=== PATIENT | female | born 1970 | race American Indian/Alaskan Native ===

== ENCOUNTER 2017-02-15 12:02 | Emergency (ER) | payer OTHER ==
[2017-02-15 12:02] VITALS: BMI 25.5
[2017-02-15 12:22] VITALS: TEMP 98.2
--- NOTE | 2017-02-15 13:24 | ED PDOC ---
Arrival/HPI - General Chief Complaint: Hip Pain Time Seen by Provider: 02/15/17 12:05 Historian: Patient - History of Present Illness Narrative History of Present Illness (Text): 02/15/17 13:19 46yr old female presents today with a 1 day history of right hip pain. pt denies trauma ro injury. pt states yesterday she was standing still and suddenly developed pain to the anterior aspect of the right hip. pt states pain radiated from buttock to hip and into thigh. denies numbness, weakness, or tingling in the extremity. pt states she took aleve at home for pain with some relief. pt denies abdominal pain. pt states she still has pain but it is much better than yesterday. pt states pain is worse with ambulation and with rom of hip. Time/Duration: Other (1 day) Symptom Onset: Sudden Symptom Course: Improving Quality: Tightness, Stabbing Severity Level: 5 Past Medical History - Provider Review Nursing Documentation Reviewed: Yes - Travel History Have you recently traveled outside [place] w/in the past 3 mons?: No - Past History Past History: No Previous - Infectious Disease Hx of Infectious Diseases: None - Tetanus Immunization Tetanus Immunization: Unknown - Past Medical History Past Medical History: No Previous - Psychiatric Hx Substance Use: No - Surgical History Hx Hysterectomy: Yes (partial) Hx Orthopedic Surgery: Yes (left knee) Family/Social History - Physician Review Nursing Documentation Reviewed: Yes Family/Social History: Unknown Family HX Smoking Status: Never Smoked Hx Alcohol Use: Yes Hx Substance Use: No Allergies/Home Meds Allergies/Adverse Reactions: Allergies Iodinated Contrast Media - Oral and Allergy (Verified 02/15/17 12:19) ANAPHYLAXIS Review of Systems - Review of Systems Constitutional: absent: Fatigue, Fevers Respiratory: absent: SOB, Cough Cardiovascular: absent: Chest Pain Gastrointestinal: absent: Abdominal Pain, Vomiting Musculoskeletal: Arthralgias. absent: Back Pain, Neck Pain Skin: absent: Rash, Pruritis Neurological: absent: Headache Physical Exam Vital Signs Reviewed: Yes Vital Signs Temp Pulse Resp BP Pulse Ox 02/15/17 12:21 98.2 F 82 17 129/88 99 Temperature: Afebrile Blood Pressure: Normal Pulse: Regular Respiratory Rate: Normal Appearance: Positive for: Well-Appearing, Non-Toxic, Comfortable Pain Distress: None Mental Status: Positive for: Alert and Oriented X 3 - Systems Exam Head: Present: Atraumatic Mouth: Present: Moist Mucous Membranes Respiratory/Chest: Present: Clear to Auscultation Cardiovascular: Present: Regular Rate and Rhythm Abdomen: No: Tenderness, Distention Back: Present: Normal Inspection. No: Midline Tenderness, Paraspinal Tenderness , Pain with Leg Raise Lower Extremity: Present: NORMAL PULSES, Tenderness (right hip; + ttp over anterior and lateral aspect of hip; + ttp with abduction of the hip; no edema, no erythema; no ecchymosis; no calf tenderness. negative straight leg raise. sensation and distal pulses intact; cap refill <2. ), Neurovascularly Intact, Capillary Refill < 2 s, Other (pelvis stable). No: CALF TENDERNESS, Swelling, Erythema, Deformity Neurological: Present: GCS=15 Skin: Present: Warm, Dry, Normal Color. No: Rashes Psychiatric: Present: Alert, Oriented x 3 Medical Decision Making ED Course and Treatment: 02/15/17 13:26 Patient nontoxic well-appearing in no distress with stable vital signs X-rays of the right hip: No fracture as read by the radiologist venous duplex of right leg; no dvt verbal report from US tech. Toradol, Flexeril Patient reassessment: pt feeling better after medications; vitals stable. I discussed all results in depth with the patient advised to followup with the orthopedist within the next 2 days. Advised return if symptoms worsen persist or new symptoms develop i advised the patient that although the xrays show no fracture; there is still a possibility for ligamentous or tendon injury the patient must see the orthopedist for further evaluation. Patient verbalizes understanding of discharge instructions and need for immediate followup. all aspects of this case were discussed the attending of record. Impression: Hip pain Motrin every 6 hours as needed for pain flexeril; 1 tablet every 8 hours as needed for muscle spasms; may cause drowsiness. Rest, ice, compression, elevation Followup with the orthopedist within the next 2 days Followup with primary care physician within the next 2 days Return if symptoms worsen persist or if new symptoms develop 02/15/17 13:47 - RAD Interpretation Radiology Orders: 02/15/17 12:41 Hip Right [HIP MIN 2V W/ PELVIS RT] [RAD] Stat 02/15/17 13:27 DUPLEX LOWER EXTRM VEIN RIGHT [US] Stat - Medication Orders Current Medication Orders: Discontinued Medications Cyclobenzaprine HCl (Flexeril) 10 mg PO STAT STA Stop: 02/15/17 12:42 Last Admin: 02/15/17 12:49 Dose: 10 mg Ketorolac Tromethamine (Toradol) 60 mg IM STAT STA Stop: 02/15/17 12:42 Last Admin: 02/15/17 12:52 Dose: Not Given Non-Admin Reason: Patient Refused Disposition/Present on Arrival - Present on Arrival Any Indicators Present on Arrival: Yes History of DVT/PE: Yes History of Uncontrolled Diabetes: No Urinary Catheter: No History of Decub. Ulcer: No History Surgical Site Infection Following: None - Disposition Have Diagnosis and Disposition been Completed?: Yes Diagnosis: Hip pain, Leg pain Disposition: HOME/ ROUTINE Disposition Time: 13:30 Patient Plan: Discharge Condition: GOOD Discharge Instructions (ExitCare): Hip Pain (ED), Leg Pain (ED) Additional Instructions: Motrin every 6 hours as needed for pain flexeril; 1 tablet every 8 hours as needed for muscle spasms; may cause drowsiness. Rest, ice, compression, elevation Followup with the orthopedist within the next 2 days Followup with primary care physician within the next 2 days Return if symptoms worsen persist or if new symptoms develop Prescriptions: Cyclobenzaprine [Cyclobenzaprine HCl] 10 mg PO Q8 #10 tab Ibuprofen [Motrin] 600 mg PO Q6H PRN #20 tab PRN Reason: pain/fever reduction Referrals: Tyrone Garcia III, MD [Medical Doctor] - Follow up with primary [facility] [place] [Outside] - Follow up with primary Julienne Tapia MD [Staff Provider] - Follow up with primary Forms: WORK NOTE
--- NOTE | 2017-02-15 13:31 | RAD ---
PROCEDURE: Right Hip and pelvis Radiographs. HISTORY: right hip pain COMPARISON: None. FINDINGS: BONES: Normal. No fracture. JOINTS: Normal. SOFT TISSUES: Normal. OTHER FINDINGS: None. IMPRESSION: Negative study
[2017-02-15 14:18] VITALS: BP 119/78; PULSE 78; RESP 18; O2SAT 98
--- NOTE | 2017-02-15 19:10 | US ---
PROCEDURE: Right lower extremity venous US HISTORY: Leg pain and swelling. Evaluate for DVT. PHYSICIAN(S): Jose Cooley M.D. TECHNIQUE: Duplex sonography and color-flow Doppler with graded compression were used to evaluate the deep venous system of the right lower extremity. FINDINGS: The visualized deep venous system of the right lower extremity is sonographically normal and compressible. Normal waveforms and augmentation are seen. There is no sonographic evidence for deep venous thrombosis in the visualized segments of the right lower extremity. IMPRESSION: 1. No sonographic evidence for deep venous thrombosis in the visualized segments of the right lower extremity.
== END 2017-02-15 14:18 | disposition home or self-care (01) ==
LOC: ED 12:02
DX: M25.551 Pain in right hip (principal); M79.604 Pain in right leg

== ENCOUNTER 2017-04-05 16:11 | Emergency (ER) | payer OTHER ==
[2017-04-05 16:12] VITALS: BMI 25.5
[2017-04-05 16:17] VITALS: PULSE 80; RESP 16; TEMP 98.4; O2SAT 98
[2017-04-05] MEDS ORDERED: Alum-Mag Hydrox-Simethicone Susp (30 mL) PO STA (16:37)
--- NOTE | 2017-04-05 16:54 | ED PDOC ---
Arrival/HPI - General Chief Complaint: Chest Pain Time Seen by Provider: 04/05/17 16:24 - History of Present Illness Narrative History of Present Illness (Text): 46F c/o anterior substernal chest pain "burning" and "pressure" that feels like "gas." burning started 6 days ago on thursday after she took an aleve and "it messed my stomach up" and pressure on . sx are fairly constant and worse after eating. hx of dvt and pe several years ago and was on anticoag for 6 months after. psh hysterectomy due to fibroid. reports anaphylactic reaction after receiving "blood, plasma, and IV contrast all at the same time." denies smoking or drug use. Past Medical History - Past History Past History: No Previous - Infectious Disease Hx of Infectious Diseases: None - Tetanus Immunization Tetanus Immunization: Unknown - Past Medical History Past Medical History: No Previous - Pulmonary Hx Respiratory Disorders: Yes Hx Pulmonary Embolism: Yes (2014) - Neurological Hx Neurological Disorder: No - HEENT Hx HEENT Disorder: No - Renal Hx Renal Disorder: No - Endocrine/Metabolic Hx Endocrine Disorders: No - Hematological/Oncological Hx Blood Disorders: No - Integumentary Hx Dermatological Disorder: No - Musculoskeletal/Rheumatological Hx Musculoskeletal Disorders: No - Gastrointestinal Hx Gastrointestinal Disorders: No - Genitourinary/Gynecological Hx Genitourinary Disorders: No - Psychiatric Hx Psychophysiologic Disorder: No Hx Substance Use: No - Surgical History Hx Hysterectomy: Yes (partial) Hx Orthopedic Surgery: Yes (left knee) Family/Social History Family/Social History: denies: CAD/[place] Smoking Status: Never Smoked Hx Alcohol Use: Yes Frequency of alcohol use: Socially Hx Substance Use: No Allergies/Home Meds Allergies/Adverse Reactions: Allergies Iodinated Contrast- Oral and IV Dye [Iodinated Contrast Media - Oral and] Allergy (Verified 04/05/17 16:17) ANAPHYLAXIS Home Medications: Home Meds Medication Instructions Recorded Confirmed No Known Home Med 04/05/17 04/05/17 Review of Systems - Review of Systems Constitutional: absent: Fevers Respiratory: absent: SOB, Cough, Sputum Cardiovascular: Chest Pain. absent: Palpitations, Edema Gastrointestinal: absent: Abdominal Pain, Nausea, Vomiting Genitourinary Female: absent: Dysuria Neurological: absent: Headache, Focal Weakness Physical Exam Vital Signs Reviewed: Yes Vital Signs Temp Pulse Resp BP Pulse Ox 04/05/17 16:15 98.4 F 80 16 141/95 H 98 Appearance: Positive for: Well-Appearing, Non-Toxic, Comfortable Pain Distress: None Mental Status: Positive for: Alert and Oriented X 3 - Systems Exam Head: Present: Atraumatic Pupils: Present: PERRL Mouth: Present: Moist Mucous Membranes Neck: Present: Normal Range of Motion Respiratory/Chest: Present: Clear to Auscultation. No: Respiratory Distress, Accessory Muscle Use Cardiovascular: Present: Regular Rate and Rhythm Abdomen: No: Tenderness, Distention Upper Extremity: Present: NORMAL PULSES Lower Extremity: No: Edema Neurological: Present: GCS=15, Motor Func Grossly Intact, Normal Sensory Function, Other (no focal deficits) Skin: Present: Warm, Dry Psychiatric: Present: Alert, Oriented x 3 Medical Decision Making ED Course and Treatment: ecg- nsr 71, nl axis, nl int, no acute ischemia cxr- nad 04/05/17 18:21 the pt reports that her pain is now gone after maalox and viscous lidocaine. susp her sx are most likely GI related. she already incidentally has an appt w GI tomorrow for a different reason. HEART score low risk. - Lab Interpretations Lab Results: 04/05/17 16:50 04/05/17 17:12 Lab Results 04/05/17 17:12: Sodium 136, Potassium 3.5 L, Chloride 102, Carbon Dioxide 23, Anion Gap 15, BUN 8, Creatinine 0.7, Est GFR ( Amer) > 60, Est GFR (Non- Af Amer) > 60, Random Glucose 81, Calcium 9.4, Total Bilirubin 0.7, AST 25, ALT 27, Alkaline Phosphatase 94, Troponin I < 0.01, Total Protein 7.3, Albumin 4.4, Globulin 2.9, Albumin/Globulin Ratio 1.5 04/05/17 16:50: D-Dimer, Quantitative 0.47 04/05/17 16:50: WBC 5.0, RBC 4.57, Hgb 14.1, Hct 41.0, MCV 89.7, MCH 30.9, MCHC 34.4, RDW 12.7, Plt Count 288, MPV 10.9, Gran % 50.3, Lymph % (Auto) 39.3 H, [place] % (Auto) 8.0 H, Eos % (Auto) 2.0, Baso % (Auto) 0.4, Gran # 2.52, Lymph # 2.0, Spencer # 0.4, Eos # 0.1, Baso # 0.02 - RAD Interpretation Radiology Orders: 04/05/17 16:36 CHEST PORTABLE [RAD] Stat - Medication Orders Current Medication Orders: Discontinued Medications Al Hydrox/Mg Hydrox/Simethicone (Maalox Plus 30 Ml) 30 ml PO STAT STA Stop: 04/05/17 16:38 Last Admin: 04/05/17 17:02 Dose: 30 ml Lidocaine HCl (Lidocaine 2% Viscous) 15 ml PO STAT STA Stop: 04/05/17 16:38 Last Admin: 04/05/17 17:02 Dose: 15 ml Disposition/Present on Arrival - Present on Arrival Any Indicators Present on Arrival: Yes History of DVT/PE: Yes History of Uncontrolled Diabetes: No Urinary Catheter: No History of Decub. Ulcer: No History Surgical Site Infection Following: None - Disposition Have Diagnosis and Disposition been Completed?: Yes Diagnosis: Chest pain Disposition: HOME/ ROUTINE Disposition Time: 18:21 Condition: IMPROVED Discharge Instructions (ExitCare): Chest Pain (ED) Forms: [employer] (Portuguese)
[2017-04-05 17:11] LABS: BASO # 0.02 K/mm3 (0.0-2.0); BASO % 0.4 % (0.0-3.0); EOS # 0.1 (0.0-0.7); GRAN # 2.52 (1.4-6.5); GRAN % 50.3 % (50.0-68.0); HEMOGLOBIN 14.1 g/dL (12.0-16.0); LYMPH % 39.3 % (22.0-35.0); MEAN CELL VOLUME 89.7 fl (80.0-105.0); MEAN CORPUSCULAR HEMOGLOBIN 30.9 pg (25.0-35.0); MEAN CORPUSCULAR HGB CONC 34.4 g/dl (31.0-37.0); MEAN PLATELET VOLUME 10.9 fl (7.0-11.0); MONO # 0.4 (0.1-0.6); PLATELET COUNT 288 10^3/uL (120.0-450.0); RBC 4.57 10^6/uL (3.5-6.1); RED CELL DISTRIBUTION WIDTH 12.7 % (11.5-14.5)
[2017-04-05 17:34] LABS: ALB/GLOB RATIO 1.5 (1.1-1.8); ALBUMIN 4.4 g/dL (3.0-4.8); ALT/SGPT 27 U/L (7-56); AST/SGOT 25 U/L (15-39); BLOOD UREA NITROGEN 8 mg/dL (7-21); CALCIUM 9.4 mg/dL (8.4-10.5); GFR AFRICAN-AMERICAN > 60; GFR NON-AFRICAN AMERICAN > 60
[2017-04-05 18:01] LABS: TROPONIN I < 0.01 ng/mL
[2017-04-05 18:41] VITALS: BP 123/76
--- NOTE | 2017-04-06 07:13 | RAD ---
HISTORY: Chest pain. COMPARISON: No prior. FINDINGS: LUNGS: No active pulmonary disease. PLEURA: No significant pleural effusion identified, no pneumothorax apparent. CARDIOVASCULAR: No radiographic findings to suggest acute or significant cardiovascular disease. OSSEOUS STRUCTURES: No significant abnormalities. VISUALIZED UPPER ABDOMEN: Normal. OTHER FINDINGS: None. IMPRESSION: No active disease.
--- NOTE | 2017-04-06 13:21 | CARD ---
APPROVED REPORT EKG Measurement Heart [id number] <Conclusion> Normal sinus rhythm Normal ECG
== END 2017-04-05 18:40 | disposition home or self-care (01) ==
LOC: ED 16:11
DX: R07.9 Chest pain, unspecified (principal); Z86.711 Personal history of pulmonary embolism; Z86.718 Personal history of other venous thrombosis and embolism

== ENCOUNTER 2018-02-05 20:47 | Emergency (ER) | payer OTHER ==
[2018-02-05 21:22] VITALS: RESP 18; TEMP 98.4; BMI 26.3
--- NOTE | 2018-02-05 21:25 | ED PDOC ---
Arrival/HPI - General Chief Complaint: Chest Pain Time Seen by Provider: 02/05/18 21:00 Historian: Patient, Spouse - History of Present Illness Narrative History of Present Illness (Text): you were treated in the ED today for hx of deep vein clot/pulmonary embolism during uterine surgery and completed blood thinning treatment 2014 and now having stress/anxiety at work and feel some intermittent generalized chest pain with transient difficulty breathing and otherwise without any nausea/vomiting/ headache/dizziness/difficulty breathing/chest pain/abdomen pain/numbness/ tingling/loss of limb function/pain with urination/no thoughts to harm yourself or others or hallucination. Time/Duration: Other (2 days) Symptom Onset: Gradual Symptom Course: Intermittent Quality: Aching Severity Level: 2 Activities at Onset: Rest Context: Sitting Past Medical History - Provider Review Nursing Documentation Reviewed: Yes - Travel History Have you recently traveled outside [place] w/in the past 3 mons?: No - Past History Past History: No Previous - Infectious Disease Hx of Infectious Diseases: None - Tetanus Immunization Tetanus Immunization: Unknown - Past Medical History Past Medical History: No Previous - Pulmonary Hx Respiratory Disorders: Yes Hx Pulmonary Embolism: Yes (2014) - Neurological Hx Neurological Disorder: No - HEENT Hx HEENT Disorder: No - Renal Hx Renal Disorder: No - Endocrine/Metabolic Hx Endocrine Disorders: No - Hematological/Oncological Hx Blood Disorders: No - Integumentary Hx Dermatological Disorder: No - Musculoskeletal/Rheumatological Hx Musculoskeletal Disorders: No - Gastrointestinal Hx Gastrointestinal Disorders: No - Genitourinary/Gynecological Hx Genitourinary Disorders: No - Psychiatric Hx Psychophysiologic Disorder: No Hx Substance Use: No - Surgical History Hx Hysterectomy: Yes (partial) Hx Orthopedic Surgery: Yes (left knee) Family/Social History - Physician Review Nursing Documentation Reviewed: Yes Family/Social History: No Known Family HX Smoking Status: Never Smoked Hx Alcohol Use: Yes Hx Substance Use: No Allergies/Home Meds Allergies/Adverse Reactions: Allergies Iodinated Contrast- Oral and IV Dye [Iodinated Contrast Media - Oral and] Allergy (Verified 04/05/17 16:17) ANAPHYLAXIS Home Medications: Home Meds Medication Instructions Recorded Confirmed No Known Home Med 02/05/18 02/05/18 Review of Systems - Review of Systems Constitutional: Normal Eyes: Normal ENT: Normal Respiratory: SOB Cardiovascular: Chest Pain Gastrointestinal: Normal Genitourinary Female: Normal Musculoskeletal: Normal Skin: Normal Neurological: Normal Endocrine: Normal Hemo/Lymphatic: Normal Psychiatric: Normal Physical Exam Vital Signs Reviewed: Yes Vital Signs Temp Pulse Resp BP Pulse Ox 02/05/18 21:07 98.4 F 72 18 125/94 H 97 Temperature: Afebrile Blood Pressure: Hypertensive Pulse: Regular Respiratory Rate: Normal Appearance: Positive for: Well-Appearing, Non-Toxic, Comfortable Pain Distress: None Mental Status: Positive for: Alert and Oriented X 3 - Systems Exam Head: Present: Atraumatic, Normocephalic Pupils: Present: PERRL Extroacular Muscles: Present: EOMI Conjunctiva: Present: Normal Ears: Present: Normal Mouth: Present: Moist Mucous Membranes Pharnyx: Present: Normal Nose (External): Present: Atraumatic Nose (Internal): Present: Normal Inspection Neck: Present: Normal Range of Motion Respiratory/Chest: Present: Clear to Auscultation, Good Air Exchange Cardiovascular: Present: Regular Rate and Rhythm Abdomen: No: Tenderness, Distention, Normal Bowel Sounds, Peritoneal Signs, Rebound, Guarding, McBurney's Point Tender, Rovsing's Sign Present, Hernias, Feeding Tubes, Ostomy Tubes, Mass/Organomegaly, Scars, Other Back: Present: Normal Inspection Upper Extremity: Present: Normal Inspection Lower Extremity: Present: Normal Inspection Neurological: Present: GCS=15, CN II-XII Intact, Speech Normal, Motor Func Grossly Intact Skin: Present: Warm, Normal Color Psychiatric: Present: Alert, Oriented x 3, Normal Insight, Normal Concentration Medical Decision Making ED Course and Treatment: you were treated in the ED today for hx of deep vein clot/pulmonary embolism during uterine surgery and completed blood thinning treatment 2014 and now having stress/anxiety at work and feel some intermittent generalized chest pain with transient difficulty breathing and otherwise without any nausea/vomiting/ headache/dizziness/difficulty breathing/chest pain/abdomen pain/numbness/ tingling/loss of limb function/pain with urination/no thoughts to harm yourself or others or hallucination. You were otherwise breathing easily, pink moist lips , smiling and talking with your family, good strength/sensation, alert/oriented , walking easily, clear lungs, no abdomen tenderness, no fever temp 98.4, stable heart rate 72, stable breathing rate 18, excellent oxygen level 97% room air, elevated blood pressure 125/94 which we recommend repeat in 2-3 days primary care office to determine further treatment, you have blood tests no infection count 5, stable blood level hemoglobin 14/platelets 226, stable chemistry, heart blood test negative less than 0.01, heart failure test negative 33, low risk of blood clot negative less than 200, urine test no acute sign of infection nitrite/leukocyte negative, urine test refused, radiology chest xray initial no acute findings, ECG normal sinus rhythm, aspirin , observation done in the ED with improvement, had a long discussion with you and your as you didn't want to proceed for ct scan of your chest due to possible contrast allergy and had long discussion for further observation/care in the hospital but you refused and cautioned for complications/, counselled to monitor symptoms and thus you wanted to home with . 1. Recommend follow-up primary care 2-3 days to review symptoms, get final xray report, referral to cardiology clinic, pulmonary clinic and mental health clinic to review your symptoms, referral to gastroenterology clinic for urobilinogen in urine to ensure no complications and further care. 4. If any worsening pain, fever, chills, nausea, vomiting, difficulty breathing, numbness , loss of limb function, pain with urination or any medical condition then return to the ED. 02/06/18 00:16 02/06/18 00:16 Reassessment Condition: Re-examined, Improved - Lab Interpretations Lab Results: 02/05/18 21:47 02/05/18 21:47 Lab Results 02/05/18 22:32: Urine Color yellow, Urine Appearance Clear, Urine pH 6.0, Ur Specific [place] >= 1.030, Urine Protein Negative, Urine Glucose (UA) Negative, Urine Ketones 15 H, Urine Blood Negative, Urine Nitrate Negative, Urine Bilirubin Negative, Urine Urobilinogen 1.0 H, Ur Leukocyte Esterase Negative 02/05/18 21:47: PT 10.4, INR 0.91 L, APTT 23.1 L, D-Dimer, Quantitative < 200 02/05/18 21:47: Sodium 139, Potassium 3.9, Chloride 103, Carbon Dioxide 23, Anion Gap 17, BUN 13, Creatinine 0.6 L, Est GFR ( Amer) > 60, Est GFR ( Non-Af Amer) > 60, Random Glucose 97, Calcium 9.2, Magnesium 2.1, Total Bilirubin 0.4, AST 23, ALT 33, Alkaline Phosphatase 92, Lactate Dehydrogenase 447, Total Creatine Kinase 125, Troponin I < 0.01, NT-Pro-B Natriuret Pep 33.8, Total Protein 7.2, Albumin 4.1, Globulin 3.2, Albumin/Globulin Ratio 1.3 02/05/18 21:47: WBC 5.5, RBC 4.65, Hgb 14.7, Hct 41.9, MCV 90.1, MCH 31.6, MCHC 35.1, RDW 12.7, Plt Count 226, MPV 10.2, Gran % 47.4 L, Lymph % (Auto) 42.2 H, [place] % (Auto) 6.9 H, Eos % (Auto) 3.1, Baso % (Auto) 0.4, Gran # 2.59, Lymph # ( Auto) 2.3, [place] # (Auto) 0.4, Eos # (Auto) 0.2, Baso # (Auto) 0.02 I have reviewed the lab results: Yes - RAD Interpretation Radiology Orders: 02/05/18 22:27 CHEST PORTABLE [RAD] Stat 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 Ulcer: No History Surgical Site Infection Following: None - Disposition Have Diagnosis and Disposition been Completed?: Yes Diagnosis: Chest pain Disposition: AGAINST MEDICAL ADVICE Disposition Time: 00:17 Condition: IMPROVED Discharge Instructions (ExitCare): Chest Pain (ED), Chest Pain (DC) Additional Instructions: you were treated in the ED today for hx of deep vein clot/pulmonary embolism during uterine surgery and completed blood thinning treatment 2014 and now having stress/anxiety at work and feel some intermittent generalized chest pain with transient difficulty breathing and otherwise without any nausea/vomiting/ headache/dizziness/difficulty breathing/chest pain/abdomen pain/numbness/ tingling/loss of limb function/pain with urination/no thoughts to harm yourself or others or hallucination. You were otherwise breathing easily, pink moist lips , smiling and talking with your family, good strength/sensation, alert/oriented , walking easily, clear lungs, no abdomen tenderness, no fever temp 98.4, stable heart rate 72, stable breathing rate 18, excellent oxygen level 97% room air, elevated blood pressure 125/94 which we recommend repeat in 2-3 days primary care office to determine further treatment, you have blood tests no infection count 5, stable blood level hemoglobin 14/platelets 226, stable chemistry, heart blood test negative less than 0.01, heart failure test negative 33, low risk of blood clot negative less than 200, urine test no acute sign of infection nitrite/leukocyte negative, urine test refused, radiology chest xray initial no acute findings, ECG normal sinus rhythm, aspirin , observation done in the ED with improvement, had a long discussion with you and your as you didn't want to proceed for ct scan of your chest due to possible contrast allergy and had long discussion for further observation/care in the hospital but you refused and cautioned for complications/, counselled to monitor symptoms and thus you wanted to home with . 1. Recommend follow-up primary care 2-3 days to review symptoms, get final xray report, referral to cardiology clinic, pulmonary clinic and mental health clinic to review your symptoms, referral to gastroenterology clinic for urobilinogen in urine to ensure no complications and further care. 4. If any worsening pain, fever, chills, nausea, vomiting, difficulty breathing, numbness , loss of limb function, pain with urination or any medical condition then return to the ED. Forms: [facility] (Ethiopian), WORK NOTE
[2018-02-05 21:56] LABS: BASO # 0.02 K/mm3 (0.0-2.0); BASO % 0.4 % (0.0-3.0); EOS # 0.2 (0.0-0.7); EOS % 3.1 % (1.5-5.0); GRAN # 2.59 (1.4-6.5); GRAN % 47.4 % (50.0-68.0); HEMOGLOBIN 14.7 g/dL (12.0-16.0); LYMPH # 2.3 (1.2-3.4); LYMPH % 42.2 % (22.0-35.0); MEAN CELL VOLUME 90.1 fl (80.0-105.0); MEAN CORPUSCULAR HEMOGLOBIN 31.6 pg (25.0-35.0); MEAN CORPUSCULAR HGB CONC 35.1 g/dl (31.0-37.0); MEAN PLATELET VOLUME 10.2 fl (7.0-11.0); MONO # 0.4 (0.1-0.6); MONO % 6.9 % (1.0-6.0); RBC 4.65 10^6/uL (3.5-6.1); RED CELL DISTRIBUTION WIDTH 12.7 % (11.5-14.5); WHITE BLOOD COUNT 5.5 10^3/ul (4.5-11.0)
[2018-02-05 22:03] LABS: ALB/GLOB RATIO 1.3 (1.1-1.8); ALBUMIN 4.1 g/dL (3.0-4.8); ALT/SGPT 33 U/L (7-56); AST/SGOT 23 U/L (14-36); BLOOD UREA NITROGEN 13 mg/dL (7-21); CALCIUM 9.2 mg/dL (8.4-10.5); D DIMER < 200 ng/mL (0-243); GFR AFRICAN-AMERICAN > 60; GFR NON-AFRICAN AMERICAN > 60; INR 0.91 (0.93-1.08); PARTIAL THROMBOPLASTIN TIME 23.1 Seconds (25.1-36.5); PROTHROMBIN TIME 10.4 SECONDS (9.4-12.5)
[2018-02-05 22:13] LABS: B-TYPE NATRIURETIC PEPTIDE 33.8 pg/mL (0-450)
[2018-02-05 22:48] LABS: URINE BILIRUBIN NEGATIVE (NEGATIVE); URINE BLOOD NEGATIVE (NEGATIVE); URINE GLUCOSE (UA) NEGATIVE (NEGATIVE); URINE LEUKOCYTE ESTERASE NEGATIVE Leu/uL (NEGATIVE)
[2018-02-05 22:50] LABS: URINE APPEARANCE CLEAR (CLEAR); URINE PROTEIN NEGATIVE mg/dL (<30 mg/dL)
[2018-02-05 23:10] LABS: TROPONIN I < 0.01 ng/mL
[2018-02-06 03:11] VITALS: BP 140/87; PULSE 101; O2SAT 100
--- NOTE | 2018-02-06 09:55 | RAD ---
HISTORY: 47yoF, chest pain COMPARISON: Comparison chest 04/05/2017 FINDINGS: LUNGS: No active pulmonary disease. PLEURA: No significant pleural effusion identified, no pneumothorax apparent. CARDIOVASCULAR: Normal. OSSEOUS STRUCTURES: No significant abnormalities. VISUALIZED UPPER ABDOMEN: Normal. OTHER FINDINGS: None. IMPRESSION: No active disease.
--- NOTE | 2018-02-06 14:13 | CARD ---
APPROVED REPORT EKG Measurement Heart [id number] DC 132P-29 [id number] <Conclusion> Normal sinus rhythm Normal ECG
== END 2018-02-06 00:20 | disposition left against medical advice (07) ==
LOC: ED 20:47
DX: R07.9 Chest pain, unspecified (principal); Z86.711 Personal history of pulmonary embolism